=== PATIENT | male | born 1975 | race Caucasian/White ===

== ENCOUNTER 2018-02-24 13:00 | Outpatient (RCR) | payer MEDICARE, SELFPAY ==
--- NOTE | 2018-02-05 13:39 | PTTR_ITS ---
DATE: 02/05/18 SUBJECTIVE: Nathan states he picked up his Prednisone taper, and will begin it tomorrow morning. Continues to complain of lack of sleep. Is having significant radicular symptoms into the hand s well as shoulder pain. OBJECTIVE: Integrated dry needling. The patient read and signed dry needling information and consent to treat form today. Quantitative analysis: right deep radial nerve 1/4, left deep radial nerve 2/4 , right saphenous nerve 1/4, left saphenous nerve 1/4 = 5/16 indicating a good responded to dry needling from 8 of fewer treatments. Homeostatic points used: left deep radial and lateral ante brachial cutaneus 2 , left dorsal scapula, spinal accessory and lateral pectoral 1, left supra scapula 2, bilateral greater occipital 1, bilateral auricular 1/2 Paravertebrals C4 through C5 bilaterally 2 Manual therapy: ([id number]). Manual distraction along with cervical retraction. Did perform AAROM, but this was not tolerated well, secondary to exacerbation of left UE radiculopathy. Attempted some over the door traction, but again this was not tolerated well, secondary to an exacerbation of his radicular symptoms. Elected to end with estim to the neck with ice, which again was discontinued early secondary to increased para scapular discomfort through the rhomboid. The patient states this could have been due to how he was sitting, with his arms placed on a pillow. Direct treatment time: 15 min. Total treatment time: 30 min. Assessment: Poor tolerance to today's session. Hopefully, the Prednisone will provide some symptom reduction. I do feel he would likely benefit from further diagnostics if he is not responding to this treatment. Plan: Will have him follow up with his PCP x1 week if symptoms remain unchanged. MM/gc
--- NOTE | 2018-02-10 10:27 | PTTR_ITS ---
DATE: 02/10/18 SUBJECTIVE: Nathan reports he finds the steroid to be offering good benefits. This is allowing him to sleep nearly 6 hrs a night, now. Is still complaining of scapular pain. Admits the symptoms in his hand have diminished, and even into the forearm. OBJECTIVE: Manual therapy: ([id number]). Cervical mobs, cervical distractions with retraction as well as gentle AAROM. He then rec'd integrated dry needling. Homeostatic points used today: bilateral greater occipital with 1, bilateral greater auricular with 1/2, left spinal accessory with 1, left dorsal scapula with 1, left supra scapula with 2, left anti brachial and deep radial with 2, para vertebrals C4 through C7 bilaterally with 1. She then rec'd soft tissue mobs with the HAND [employer] CUTTER. See her note for details. Direct treatment time: 15 min. Total treatment time: 30 min. Assessment: Prednisone appears to be offering a good decrease in his radicular symptoms allowing him to sleep, now. Still very stiff with ROM, particularly with rotation and side bending to the left. Plan: Continue with the current POC. If his symptoms become exacerbated after he is done with the Prednisone taper I will refer him back to his provider for a possible MRI and/or Pain Clinic referral. MM/gc
--- NOTE | 2018-02-10 14:30 | PTTR_ITS ---
DATE: 02/10/18 Co-treat with supervising PT, Jacoby Santos. OBJECTIVE: Manual therapy: ([id number]). Mobilization of left upper traps, lev scap and posterior cuff while in supine and seated positions. This included tendon massage along the occiput, upper thoracic vertebrae, cervical vertebrae and medial scap border. TPM to left upper traps , lev scap and PRT to posterior cuff. * x Electrical Stim Unattended - [id number]: Ended session with IFC and cryotherapy x 15 minutes to cervical spine region down to distal tricep region while in supine. Direct treatment time: 15 minutes Total treatment time: 30 minutes, post time spent with supervising PT.
--- NOTE | 2018-02-12 14:16 | PTTR_ITS ---
DATE: 02/12/18 SUBJECTIVE: Nathan indicates today that he is noting improvements being made with his left UE parathesias, although did notice a return of parathesias earlier today for no know reason. Today is the last day of his Prednisone taper. States the parathesias in his left UE due come and go without specific trigger he can pin point. OBJECTIVE: Manual therapy: ([id number]). Cervical distraction while seated. The patient indicates this felt really good. Utilized soft tissue mobs throughout the left upper traps and levator scaps, SCM, pecs and down in to the rhomboid region. Utilized positional release techniques / TPM throughout these areas, as well as having the patient transition to right side lying with a pillow under his head and between his knees, keeping his spine in a neutral position. Did perform positional release techniques to the posterior cuff, as well, on the left. * x Electrical Stim Unattended - [id number]: applied with cryotherapy to the posterior cervical spine down to the left distal triceps region x15 minutes while side lying. Direct treatment time: 20 minutes Total treatment time: 35 minutes SG/gc
--- NOTE | 2018-02-17 14:30 | NT_ITS ---
02/17/18 Cancelled PT appt due to stomach issues. Mayda Ornelas, AGILE SCR[employer] COACH
--- NOTE | 2018-02-19 16:09 | PTTR_ITS ---
DATE: 02/19/18 SUBJECTIVE: Nathan indicates he did fine with his last P.T. session. Was a bit more comfortable for about 3 days, but unfortunately has had significant pain since. He states he is no longer having the pain down his arm, but now has it in his anterior shoulder region/posterior shoulder and neck. Is unable to find any position or medication that makes this feel better. He is questioning if he should try to get another Prednisone taper. We did discuss contacting Dr. Kuo to see about a consultation with the pain clinic as well as any helpful medications that may be available to him. Indicates he had a flare up of his pancreatitis a few days ago, which has only made his neck pain intensify. Manual therapy: ([id number]). Did receive mobilization of the cervical spine region consisting of supine manual tractioning. The patient does get relief with this as well as positional release techniques throughout the upper trap, levator scap, scalene, trigger point work to the SCM's and pecs as well as having patient transition into the R sidelying position for further trigger point throughout the L rhomboid and posterior cuff region. Did get permission from supervising therapist to perform Ultrasound [id number]: Thermal to the L upper trap, levator scap region which is patient's most hypertonic region throughout the L shoulder. This was performed at 3 mhz, at 1.0 w/cm2 continuous duty cycle x8 mins. * Electrical Stim Unattended - [id number]: Ended with IFC and cryotherapy to the L posterior neck, shoulder region x15 mins while in supine position. Upon exiting the dept, the patient indicated he felt as though he was taller, definitely was standing more upright and appeared more comfortable. Direct treatment time: 35 mins Total treatment time: 50 mins SG/dl
--- NOTE | 2018-02-24 11:19 | PTTR_ITS ---
DATE: 02/24/18 SUBJECTIVE: Nathan states that his left arm numbness has resolved, but he still has severe pain in the shoulder blade and upper trap region. Difficulty with any cervical flexion, left side bend and left rotation. Is sleeping 1 to 2 hrs per night, now. Initially, thought the Prednisone helped, but symptom reduction was short lived. Overall, feels he is reaching a plateau. OBJECTIVE: Recheck - Patient's active cervical rotation to the left 60 ; right is full and painfree. Limited to the left with pain. Side bending left 10 to 15 with pain reproduction; right 35 and painfree. Flexion 5 to 10 at best with increasing pain. Extension WFL and painfree. The patient has (+) cervical quadrant compression testing. Manual therapy: ([id number]). Cervical distractions, manual distractions, up slips, down slopes, lateral glides and AAROM with manual distractions into rotation left achieving 60 to 65 and side bending to 25 to 30 . This is with elicitation of upper scap discomfort on the left. Also, performed PRTs to the posterior cuff and friction massage over the levator scap origin at the medial scap border, superior angle. * [x] Electrical Stim Unattended - [id number][1]: applied w/cryo to the cervical spine and left upper quadrant posteriorly x15 minutes. * Did have a discussion with Dr. Kuo who is willing to order a MRI and put in an order for a consultation at [facility]. Direct treatment time: 45 minutes Assessment: No significant symptom changes regarding upper trap or shoulder following C5/6 distribution. The distal aspect of his left UE is WNL, now, for sensation without parathesias. Plan: Continue as indicated above, at least til he can get in at [facility]. Would like to progress with cervical stabs once his symptoms are less severe. MM/gc
--- NOTE | 2018-02-26 14:13 | NT_ITS ---
Patient cancelled today's scheduled appointment. He is having a MRI next week and is also scheduled at [facility]. Will place him on hold at this time waiting reappointment following MRI and Pain Clinic consultation. NICK/alisia
== END 2018-03-06 23:59 | disposition home or self-care (01) ==
LOC: PT 13:00
PROVIDERS: PCP Family Medicine; Referring Provider Family Medicine; Visit Provider Family Medicine
DX: M54.12 Radiculopathy, cervical region (principal)
CPT/HCPCS: 97014; 97035; 97140

== ENCOUNTER 2018-04-28 01:19 | Outpatient (CLI) | payer MEDICARE, SELFPAY ==
[2018-04-28 13:38] LABS: Hemoglobin A1C 9.7 % (4.5-6.2)
[2018-04-28 14:03] LABS: ALT 98 U/L (12-78); AST 94 U/L (15-37); Alkaline Phosphatase 77 U/L (46-116); Bilirubin, Direct 0.25 mg/dL (0.00-0.20); Bilirubin, Total 0.6 mg/dL (0.2-1.0); Total Protein 6.9 g/dL (6.4-8.2)
[2018-04-30 07:28] LABS: Vitamin D 25 Total 36.2 ng/ml (30-100)
== END 2018-04-28 01:39 ==
PROVIDERS: PCP Family Medicine; Visit Provider Family Medicine
DX: E55.9 Vitamin D deficiency, unspecified (principal); E10.51 Type 1 diabetes mellitus with diabetic peripheral angiopathy without gangrene
CPT/HCPCS: 36415; 80076; 82306; 83036

== ENCOUNTER 2019-07-29 11:16 | Outpatient (CLI) | payer MEDICARE, SELFPAY ==
[2019-07-29 13:17] LABS: Hemoglobin A1C 8.8 % (3.8-5.6)
[2019-07-29 13:33] LABS: ALT 198 U/L (16-63); AST 391 U/L (15-37); Albumin 4.4 g/dL (3.4-5.0); Alkaline Phosphatase 142 U/L (46-116); Anion Gap 16.3 mmol/L (3-11); BUN 7 mg/dL (7-18); Bilirubin, Total 1.1 mg/dL (0.2-1.0); CO2 26.7 mmol/L (21.0-32.0); Calcium 9.8 mg/dL (8.5-10.1); Calculated LDL 98 mg/dL; Chloride 94 mmol/L (98-107); Cholesterol 257 mg/dL (<200); Glucose 160 mg/dL (74-106); HDL Cholesterol 149 mg/dL (40-60); Potassium 3.6 mmol/L (3.5-5.1); Sodium 137 mmol/L (136-145); Total Protein 7.3 g/dL (6.4-8.2); Triglyceride 54 mg/dL (<150)
[2019-07-29 14:31] LABS: GGT 3149 U/L (15-85)
[2019-07-30 18:07] LABS: Lipase 48 U/L (73-393)
== END 2019-07-29 11:36 ==
PROVIDERS: PCP Family Medicine; Visit Provider Family Medicine
DX: E10.65 Type 1 diabetes mellitus with hyperglycemia (principal); K86.1 Other chronic pancreatitis
CPT/HCPCS: 36415; 80053; 80061; 83690; 82977; 83036

== ENCOUNTER → 2019-08-20 03:32 | Outpatient (CLI) | payer MEDICARE, SELFPAY ==
--- NOTE | 2019-08-20 08:15 | DI.CT_ITS ---
EXAM: CT ABDOMEN WO/W CLINICAL HISTORY: CHRONIC PANCREATITIS, K85.90 TECHNIQUE: Imaging Protocol: Axial computed tomography images with coronal and sagittal reformatted images were created and reviewed CONTRAST MATERIAL: Intravenous: Omnipaque 350 Contrast volume:100 mL Oral: Yes COMPARISON: ABD PELVIS WITH CONTRAST from 10/20/2015 FINDINGS: ABDOMEN: Lung Bases: Normal where visualized. Liver: Noncontrast images show diffuse decreased attenuation of the liver consistent with fatty infil tration. Post-contrast images show no evidence of a hepatic mass. Portal, Superior Mesenteric, and Splenic Veins: Unremarkable. Gallbladder and Biliary Tract: No radiodense calculus or dilation. Pancreas: Numerous calcifications are seen throughout the pancreas likely reflecting sequelae of staff counselor luh pancreatitis. Pancreatic mass. No peripancreatic fluid collections are seen. No inflammatory s tranding is seen around the pancreas to suggest acute pancreatitis. Spleen: Normal. Adrenals: No masses seen. Kidneys: Normal size, contour and axis. No radiodense stones or obstructive uropathy. No masses seen. Abdominal Aorta: Abdominal portion non-dilated. Minimal atherosclerosis. Bowel: No obstruction or bowel wall thickening. Peritoneal Cavity: No ascites, collection or mesenteric inflammatory response. Lymph Nodes: Within normal limits. Bones: Unremarkable. Soft Tissues: Unremarkable. IMPRESSION: 1. Findings consistent with chronic pancreatitis. No evidence of acute pancreatitis. No peripancrea tic fluid collections. 2. Fatty infiltration of the liver. DATA REPOSITORY: All CT scans at this facility are submitted to the National Radiology Data Registry (NRDR) Dose Index Registry (DIR) with the [employer] ([employer]). RADIATION OPTIMIZATION: All CT scans at this facility use at least one of these dose optimization te chniques: automated exposure control; mA and/or kV adjustment per patient size (includes targeted exa ms where dose is matched to clinical indication); or iterative reconstruction.
[2019-08-20] MEDS: Omnipaque 350 MG/ML 50 ML BTL PO (08:36)
[2019-08-20] MEDS: Breeza Beverage 473 ML BTL PO (08:37)
[2019-08-20] MEDS: Omnipaque 350 MG/ML 100 ML BTL IJ (09:34)
[2019-08-20] MEDS: Normal Saline - Diluent 50 ML VIAL IV (09:35)
== END ==
PROVIDERS: PCP Family Medicine; Visit Provider Family Medicine
DX: K86.1 Other chronic pancreatitis (principal); K76.0 Fatty (change of) liver, not elsewhere classified
CPT/HCPCS: 74170; J3490; Q9967

== ENCOUNTER 2019-09-07 10:58 | Outpatient (CLI) | payer MEDICARE, SELFPAY ==
--- NOTE | 2019-09-07 10:45 | DI.RAD_ITS ---
EXAM: XR KNEE RT 3V AP,LAT,NIRMALA INDICATION: PAIN. COMPARISON: XR KNEE LT 3V AP,LAT,NIRMALA from 09/07/2019 TECHNIQUE: 2D digital imaging was performed. FINDINGS: The bones appear osteopenic. There is mild narrowing of the medial femorotibial joint. The patellof emoral joint is well maintained. No joint effusion is seen. IMPRESSION: Mild medial femorotibial joint space narrowing. Osteopenia. DATA REPOSITORY: RADIATION DOSE DELIVERED:
--- NOTE | 2019-09-07 10:45 | DI.RAD_ITS ---
EXAM: XR KNEE LT 3V AP,LAT,NIRMALA INDICATION: PAIN. COMPARISON: XR KNEE RT 3V AP,LAT,NIRMALA from 09/07/2019 TECHNIQUE: 2D digital imaging was performed. FINDINGS: The joint spaces are well maintained. No joint effusion is seen. There is no significant periarticula r spurring. The bones appear osteopenic. IMPRESSION: Question of osteopenia. No joint effusion or degenerative changes. DATA REPOSITORY: RADIATION DOSE DELIVERED:
== END 2019-09-07 11:18 ==
PROVIDERS: PCP Family Medicine; Referring Provider Family Medicine; Visit Provider Student in an Organized Health Care Education/Training Program
DX: M25.562 Pain in left knee (principal); M85.88 Other specified disorders of bone density and structure, other site; M25.561 Pain in right knee; M17.11 Unilateral primary osteoarthritis, right knee; M22.41 Chondromalacia patellae, right knee; M22.42 Chondromalacia patellae, left knee
CPT/HCPCS: 73562; 99204; L1820